=== PATIENT | male | born 1965 | race Hispanic/Latino ===

== ENCOUNTER 2017-07-16 20:31 | Emergency (ER) | payer OTHER ==
[2017-07-16 21:31] LABS: APPEARANCE,URINE Cloudy (CLEAR); BILIRUBIN,URINE Negative (NEGATIVE); COLOR,URINE Yellow (YELLOW); GLUCOSE, URINE (UA) >=1000 mg/dL (NEGATIVE); KETONES,URINE 15 mg/dL (NEGATIVE); LEUKOCYTE ESTERASE ,URINE Large (NEGATIVE); NITRATE,URINE Positive (NEGATIVE); OCCULT BLOOD,URINE Large (NEGATIVE); PROTEIN,URINE POS 2+ (NEGATIVE)
[2017-07-16 21:46] LABS: BACTERIA,URINE Many /HPF (None Seen); RBC,URINE >100 /HPF (0-1); WBC,URINE 51-100 /HPF (0-1)
[2017-07-16] MEDS ORDERED: LEVOFLOXACIN 500 MG TABLET ONE (22:35)
== END 2017-07-16 22:57 | disposition home or self-care (01) ==
LOC: EDH 20:31
DX: N39.0 Urinary tract infection, site not specified (principal); I10 Essential (primary) hypertension; E11.9 Type 2 diabetes mellitus without complications; K21.9 Gastro-esophageal reflux disease without esophagitis; Z79.899 Other long term (current) drug therapy; Z98.890 Other specified postprocedural states
CPT/HCPCS: 81001; 87088; 87186

== ENCOUNTER 2018-03-19 15:17 | Emergency (ER) | payer OTHER ==
[2018-03-19 15:51] LABS: APPEARANCE,URINE Clear (CLEAR); BILIRUBIN,URINE Negative (NEGATIVE); COLOR,URINE Yellow (YELLOW); GLUCOSE, URINE (UA) >=1000 mg/dL (NEGATIVE); KETONES,URINE Negative (NEGATIVE); LEUKOCYTE ESTERASE ,URINE Negative (NEGATIVE); NITRATE,URINE Negative (NEGATIVE); OCCULT BLOOD,URINE Negative (NEGATIVE); PH,URINE 5.5 (5.0-8.0); PROTEIN,URINE Negative (NEGATIVE); UROBILINOGEN,URINE 0.2 mg/dL (0.2-1.0)
== END 2018-03-19 16:41 | disposition home or self-care (01) ==
LOC: EDH 15:17
DX: R31.0 Gross hematuria (principal); E11.9 Type 2 diabetes mellitus without complications; K21.9 Gastro-esophageal reflux disease without esophagitis; I10 Essential (primary) hypertension; Z85.46 Personal history of malignant neoplasm of prostate; Z87.891 Personal history of nicotine dependence
CPT/HCPCS: 81003

== ENCOUNTER 2018-05-27 10:28 | Inpatient (IN) | payer OTHER ==
[~2018-05-27] VITALS: Ht 167.6 cm; Wt 87.9 kg
[2018-05-27 11:00] LABS: BASOPHILS % (AUTO) 1.3 % (0.0-5.0); EOSINOPHILS % (AUTO) 2.8 % (0.0-8.0); HEMATOCRIT 39.1 % (42-54); LYMPHOCYTES % (AUTO) 20.9 % (21.0-51.0); MEAN CORPUSCULAR HEMOGLOBIN 29.3 pg (27.0-33.0); MEAN CORPUSCULAR VOLUME 83.6 fL (79-99); MONOCYTES % (AUTO) 12.8 % (3.0-13.0); NEUTROPHILS % (AUTO) 62.2 % (40.0-77.0); NUCLEATED RED BLOOD CELLS 0.1 % (0.0-0.19); PLATELET COUNT (AUTO) 193 K/uL (130-400); RED BLOOD CELL COUNT(AUTO) 4.67 MIL/uL (4.50-6.20)
[2018-05-27 11:03] LABS: CREATININE 0.9 mg/dL (0.5-1.5); POTASSIUM 3.6 mmol/L (3.5-5.1)
[2018-05-27 11:07] LABS: BILIRUBIN,TOTAL 0.4 mg/dL (0.2-1.0); TOTAL PROTEIN, SERUM 6.9 g/dL (6.0-8.3)
[2018-05-27] MEDS ORDERED: HYDRALAZINE HCL 20 MG/ML VIAL IV PRN (12:45)
[2018-05-27] MEDS ORDERED: MORPHINE SULFATE 2 MG/ML 1ML SYG IV PRN (12:45)
[2018-05-27] MEDS ORDERED: ACETAMINOPHEN 325 MG TAB PO PRN ×2 (12:45)
[2018-05-27] MEDS ORDERED: NITROGLYCERIN 1GM/1 INCH PACKET TD SCH (12:45)
[2018-05-27] MEDS ORDERED: ONDANSETRON HCL 4 MG/2 ML VIAL IV PRN (12:45)
[2018-05-27] MEDS ORDERED: ASPIRIN 325 MG TABLET ONE (12:53)
[2018-05-27] MEDS ORDERED: NITROGLYCERIN 1GM/1 INCH PACKET TD ONE ×2 (13:18→22:54)
[2018-05-27 13:39] LABS: HEMOGLOBIN A1C 7.6 % (4.0-6.0)
[2018-05-27 13:54] LABS: MAGNESIUM 1.8 mg/dL (1.80-2.40); THYROID STIMULATING HORMONE 1.73 uIU/mL (0.36-3.74)
[2018-05-27] MEDS ORDERED: CETI-101 PO (18:25)
[2018-05-27] MEDS ORDERED: METF-446 PO (18:25)
[2018-05-27] MEDS ORDERED: LISI-613 PO (18:25)
[2018-05-27] MEDS ORDERED: INSLAN SQ (18:25)
[2018-05-27] MEDS ORDERED: LEVO112T4 PO (18:25)
[2018-05-27] MEDS ORDERED: ACETAMINOPHEN 325 MG TAB ONE ×2 (18:30→23:38)
[2018-05-27 19:28] LABS: CREATINE KINASE, TOTAL 142 U/L (21-232); MYOGLOBIN 27 ng/mL (10-92); TROPONIN I < 0.04 ng/mL (0.00-0.06)
[2018-05-27] MEDS ORDERED: FAMOTIDINE 20MG TAB 20 MG TAB ONE (22:53)
[2018-05-27] MEDS ORDERED: METOPROLOL TARTRATE 25 MG TAB ONE (22:54)
[2018-05-28 05:08] LABS: CREATINE KINASE, TOTAL 121 U/L (21-232); MYOGLOBIN 29 ng/mL (10-92); TROPONIN I < 0.04 ng/mL (0.00-0.06)
[2018-05-28] MEDS ORDERED: REGADENOSON 0.4 MG/5 ML PF SYG IVP SCH (07:00)
[2018-05-28] MEDS ORDERED: ENOXAPARIN SODIUM 40 MG/0.4 ML SYRINGE SQ SCH (09:00)
--- NOTE | 2018-05-28 12:22 | NUR ---
[facility] Sarahi Jamil [phone]. Pt is , works at [employer], is independent, no DME or HH. Denies dc needs. plan is home at [place] Addendum: 05/28/18 at 1223 by ALISSA MCCOY Amended: Links added.
[2018-05-28] MEDS ORDERED: METOPROLOL TARTRATE 25 MG TAB ONE (13:01)
[2018-05-28] MEDS ORDERED: ASPIRIN 325MG EC TAB 325 MG TABLET.DR PO ONE (13:01)
[2018-05-28] MEDS ORDERED: NITROGLYCERIN 1GM/1 INCH PACKET TD ONE (13:01)
[2018-05-28] MEDS ORDERED: ENOXAPARIN SODIUM 40 MG/0.4 ML SYRINGE SQ ONE (13:01)
--- NOTE | 2018-05-28 15:58 | NUR ---
CARLOS SCAN RESULTS INFORMED BY DR JOSE AMBROCIOI SCAN ABNORMAL. Nohemy RAMOS TO BE NOTIFIED.
[2018-05-28 16:00] VITALS: BP 135/86
--- NOTE | 2018-05-28 16:00 | NUR ---
MD NOTIFICATION Nohemy RAZO NOTIFIED OF CARLOS SCAN RESULTS. ORDER RECEIVED TO KEEP PT NPO AFTER MIDNIGHT. PLAN FOR [facility] IN AM BY DR Jessica CORDERO. Nohemy RAZO PA TO SPEAK W/PT IN AM. PT & UPDATED.
[2018-05-28] MEDS: METOPROLOL TARTRATE 25 MG TAB PO SCH ×2 (16:30→21:14)
[2018-05-28] MEDS: ASPIRIN 325 MG TABLET PO SCH (16:31)
[2018-05-28] MEDS: FAMOTIDINE 20MG TAB 20 MG TAB PO SCH ×2 (16:31→21:14)
[2018-05-28 19:57] VITALS: BP 147/96
[2018-05-28] MEDS: NITROGLYCERIN 1GM/1 INCH PACKET TD SCH (21:15)
[2018-05-28] MEDS ORDERED: CETIRIZINE HCL 5 MG TABLET PO PRN (23:15)
[2018-05-28 23:38] VITALS: BP 133/87
[2018-05-29] VITALS (11 sets, daily range): BP systolic 108–153; BP diastolic 73–91
[2018-05-29 04:00] LABS: HEMATOCRIT 40.6 % (42-54); MEAN CORPUSCULAR HEMOGLOBIN 28.8 pg (27.0-33.0); MEAN CORPUSCULAR HGB CONC 34.7 g/dL (32.0-36.0); MEAN CORPUSCULAR VOLUME 82.9 fL (79-99); NUCLEATED RED BLOOD CELLS 0.1 % (0.0-0.19); PLATELET COUNT (AUTO) 205 K/uL (130-400); RED CELL DISTRIBUTION WIDTH 13.3 % (11.0-15.5); WHITE BLOOD COUNT (AUTO) 4.8 K/uL (4.8-10.8)
[2018-05-29 04:08] LABS: CREATININE 0.9 mg/dL (0.5-1.5); POTASSIUM 3.6 mmol/L (3.5-5.1)
[2018-05-29 05:54] LABS: INR 0.97 (0.85-1.15); PROTHROMBIN TIME 10.2 SEC (9.6-11.6)
[2018-05-29] MEDS: NITROGLYCERIN 1GM/1 INCH PACKET TD SCH (06:00)
[2018-05-29] MEDS ORDERED: LEVOTHYROXINE 112 MCG TABLET PO SCH (06:30)
[2018-05-29 06:32] LABS: CHOLESTEROL 157 mg/dL (<200); HDL CHOLESTEROL 27 mg/dL (29-71); LDL DIRECT 75 mg/dL (0-99); TRIGLYCERIDES 410 mg/dL (30-200)
--- NOTE | 2018-05-29 07:15 | NUR ---
AM ASSESSMENT PT LAYING IN BED, HOB ELEVATED 30 DEGREES, RESTING. ANXIOUS, PENDING [facility] TODAY. A/ O X 3. NO SOB. NO DISTRESS NOTED. DENIES CHEST PAIN OR DISCOMFORT. DENIES PALPITATIONS. TELE: SR 70s. DENIES N/V AND/OR DIARRHEA. NPO STATUS REINFORCED. UP AD USMAN. INSTRUCTED TO CALL FOR ASSISTANCE. CALL RODERICK W/IN REACH.
[2018-05-29] MEDS ORDERED: NITROGLYCERIN 5 MG/ML 10 ML VIAL IV ONE (07:19)
[2018-05-29] MEDS ORDERED: IOHEXOL 350 MG/ML 100ML INFUS..BTL IV ONE (07:19)
[2018-05-29] MEDS ORDERED: IOHEXOL-350 50ML VIAL IV ONE (07:19)
[2018-05-29] MEDS ORDERED: LIDOCAINE HCL 2% 20ML ONE (07:20)
--- NOTE | 2018-05-29 07:30 | NUR ---
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 TELE SINA REMOVED.
[2018-05-29] MEDS ORDERED: MIDAZOLAM HCL 1 MG/ML 2ML VIAL ONE (08:03)
[2018-05-29] MEDS ORDERED: SODIUM CHLORIDE 0.9% 1000ML 1,000 ML IV SCH (09:12)
--- NOTE | 2018-05-29 09:30 | NUR ---
STATUS PT RECEIVED FROM [facility], S/P [facility] BY DR Jessica CORDERO. RT GROIN PER CLOSE, DSG DRY & INTACT. PUNCTURE SITE SOFT, NON-TENDER. NO BLEEDING, NO HEMATOMA NOTED. (+) STRONG BILATERAL PEDAL PULSES. BLE PINK & WARM TO TOUCH. PT INFORMED TO MAINTAIN BEDREST X 4 HRS. DENIES CHEST PAIN OR DISCOMFORT. DENIES PAIN TO PUNCTURE SITE. 0.9% NACL INFUSING @ 150 ML/HR X 6 HRS. INSTRUCTED TO CALL FOR ASSISTANCE. CALL RODERICK W/IN REACH.
[2018-05-29] MEDS: METOPROLOL TARTRATE 25 MG TAB PO SCH (10:02)
[2018-05-29] MEDS: ASPIRIN 325 MG TABLET PO SCH (10:02)
[2018-05-29] MEDS: FAMOTIDINE 20MG TAB 20 MG TAB PO SCH (10:02)
[2018-05-29] MEDS ORDERED: DEXTROSE 50%-WATER 50 ML DISP.SYRIN IV PRN (11:30)
[2018-05-29] MEDS ORDERED: GLUCAGON 1MG KIT 1 MG ML IM PRN (11:30)
[2018-05-29] MEDS: INSULIN HUMULIN R 100 UNIT/ML 3ML SQ SCH ×2 (11:30→16:30)
--- NOTE | 2018-05-29 13:30 | NUR ---
STATUS BEDREST COMPLETE. RT GROIN DSG DRY & INTACT. NO BLEEDING, NO HEMATOMA NOTED. PUNCTURE SITE SOFT, NON-TENDER. (+) STRONG BILATERAL PEDAL PULSES. BLE PINK & WARM TO TOUCH. PT ASSISTED TO SIT UP IN BED. TOLERATED WELL. DENIES INCISIONAL PAIN @ THIS TIME.
--- NOTE | 2018-05-29 17:30 | NUR ---
DISCHARGE TELE SINA REMOVED. IV DISCONTINUED. PT TO DC HOME THIS EVENING, PENDING DR LEARY TO [facility].
[2018-05-29] MEDS ORDERED: ASPI-555 PO (18:28)
[2018-05-29] MEDS ORDERED: SIMV20TA6 PO (18:28)
--- NOTE | 2018-05-29 18:44 | NUR ---
DISCHARGE PRESCRIPTION CALLED TO PT'S PHARMACY IN FILE. SPOKE TO KIRSTIE MIMS, PHARMACIST.
--- NOTE | 2018-05-29 18:50 | NUR ---
DISCHARGE VERBAL & WRITTEN DISCHARGE INSTRUCTIONS REVIEWED & GIVEN TO PT. QUESTIONS ENCOURAGED & CLARIFIED. PROPER CARE & ACTIVITY AFTER [facility] REVIEWED. NEW PRESCRIBED MEDICATIONS REVIEWED. PRESCRIPTION GIVEN TO PT. PT INFORMED PRESCRIPTION HAD BEEN ALSO BEEN CALLED TO PHARMACY ON FILE. PT & GATHERED PERSONAL BELONGINGS EARLIER. WILL NOTIFY STAFF WHEN READY TO BE TAKEN TO PRIVATE VEHICLE.
--- NOTE | 2018-05-29 19:05 | NUR ---
DISCHARGE PT TAKEN TO PRIVATE VEHICLE VIA WC BY Ana WHITLEY PCP, ACCOMPANIED BY . NO DISTRESS NOTED.
[2018-05-29] MEDS ORDERED: SIMVASTATIN 20 MG TABLET PO SCH (21:00)
== END 2018-05-29 18:55 | disposition home or self-care (01) | DRG 392 ==
LOC: EDH 10:28 → EDHIP 12:38 → OBSVTOIN 12:38 → 2DH 05-28 15:20
PROVIDERS: ADMIT Internal Medicine; ATTEND Internal Medicine
PROC: B2111ZZ Fluoroscopy of Multiple Coronary Arteries using Low Osmolar Contrast (ICD-10-PCS; principal; 2018-05-29)
PROC: B2151ZZ Fluoroscopy of Left Heart using Low Osmolar Contrast (ICD-10-PCS; 2018-05-29)
PROC: 4A023N7 Measurement of Cardiac Sampling and Pressure, Left Heart, Percutaneous Approach (ICD-10-PCS; 2018-05-29)
PROC: B41F1ZZ Fluoroscopy of Right Lower Extremity Arteries using Low Osmolar Contrast (ICD-10-PCS; 2018-05-29)
DX: K21.9 Gastro-esophageal reflux disease without esophagitis (principal); E11.9 Type 2 diabetes mellitus without complications; E78.2 Mixed hyperlipidemia; I10 Essential (primary) hypertension; Z82.49 Family history of ischemic heart disease and other diseases of the circulatory system; Z85.46 Personal history of malignant neoplasm of prostate
CPT/HCPCS: 36415; 71045; 78452; 80048; 80053; 80061; 82550; 82948; 83036; 83735; 83874; 84100; 84443; 84484; 85025; 85027; 85610; 85730; 93005; 93017; 93306; 93458; 96374; 99156; 99157; A9500; C1760; C1894; G0378; J1644; J1650; J2250; J2785; J3490; J7030; Q9967

== ENCOUNTER 2018-08-04 07:51 | Emergency (ER) | payer OTHER ==
[~2018-08-04 07:51] MED LIST: ASPI-555 PO; CETI-101 PO; INSLAN SQ; LEVO112T4 PO; LISI-613 PO; METF-446 PO; SIMV20TA6 PO
[2018-08-04] MEDS ORDERED: ONDANSETRON HCL 4 MG/2 ML VIAL ONE (08:50)
[2018-08-04] MEDS ORDERED: MORPHINE SULFATE 4 MG/1ML SYG ONE (08:50)
[2018-08-04] MEDS ORDERED: SODIUM CHLORIDE 0.9% 1000ML 1,000 ML IV ONE (08:51)
[2018-08-04 08:54] LABS: BASOPHILS % (AUTO) 1.1 % (0.0-5.0); EOSINOPHILS % (AUTO) 4.5 % (0.0-8.0); HEMATOCRIT 37.8 % (42-54); LYMPHOCYTES % (AUTO) 15.7 % (21.0-51.0); MEAN CORPUSCULAR HEMOGLOBIN 27.1 pg (27.0-33.0); MEAN CORPUSCULAR HGB CONC 33.4 g/dL (32.0-36.0); MEAN CORPUSCULAR VOLUME 81.1 fL (79-99); MONOCYTES % (AUTO) 8.1 % (3.0-13.0); NEUTROPHILS % (AUTO) 70.6 % (40.0-77.0); NUCLEATED RED BLOOD CELLS 0.1 % (0.0-0.19); PLATELET COUNT (AUTO) 309 K/uL (130-400); RED BLOOD CELL COUNT(AUTO) 4.66 MIL/uL (4.50-6.20); RED CELL DISTRIBUTION WIDTH 12.7 % (11.0-15.5); WHITE BLOOD COUNT (AUTO) 6.3 K/uL (4.8-10.8)
[2018-08-04 09:01] LABS: CREATININE 0.8 mg/dL (0.5-1.5); POTASSIUM 3.9 mmol/L (3.5-5.1)
[2018-08-04 09:05] LABS: ALBUMIN 3.8 g/dL (3.5-5.0); BILIRUBIN,TOTAL 0.3 mg/dL (0.2-1.0); TOTAL PROTEIN, SERUM 7.6 g/dL (6.0-8.3)
[2018-08-04] MEDS ORDERED: IOHEXOL-350 75 ML VIAL IV ONE (09:18)
[2018-08-04 09:32] LABS: BILIRUBIN,URINE Negative (NEGATIVE); COLOR,URINE Yellow (YELLOW); GLUCOSE, URINE (UA) 250 mg/dL (NEGATIVE); KETONES,URINE Trace mg/dL (NEGATIVE); LEUKOCYTE ESTERASE ,URINE Negative (NEGATIVE); NITRATE,URINE Negative (NEGATIVE); OCCULT BLOOD,URINE Negative (NEGATIVE); PROTEIN,URINE POS 1+ mg/dL (NEGATIVE)
[2018-08-04 09:44] LABS: BACTERIA,URINE Few /HPF (None Seen); MUCUS,URINE Many LPF (None Seen); RBC,URINE 0-1 /HPF (0-1); SQUAMOUS EPITHELIAL CELL,UR Rare /HPF (0-2); WBC,URINE 0-1 /HPF (0-1)
[2018-08-04 09:47] LABS: APPEARANCE,URINE SLIGHTLY CLOUDY (CLEAR)
[2018-08-04] MEDS ORDERED: ZOSYN 3.375GM+NS 50ML 50 ML IV ONE (11:06)
== END 2018-08-04 11:53 | disposition home or self-care (01) ==
LOC: EDH 07:51
DX: N49.2 Inflammatory disorders of scrotum (principal); I10 Essential (primary) hypertension; K21.9 Gastro-esophageal reflux disease without esophagitis; E11.9 Type 2 diabetes mellitus without complications; E07.9 Disorder of thyroid, unspecified; Z85.46 Personal history of malignant neoplasm of prostate
CPT/HCPCS: 36415; 74177; 80053; 81001; 85025; 96365; 96375; 99285; J2270; J2405; J2543; J7030; Q9967